=== PATIENT | male | born 1960 | race Caucasian/White ===

== ENCOUNTER → 2020-06-30 | Outpatient (CLI) | payer OTHER ==
--- NOTE | 2020-06-30 15:13 | CT ---
EXAMINATION TYPE: CT abdomen pelvis wo con DATE OF EXAM: 06/30/2020 COMPARISON: CT chest 03/02/2014 HISTORY: 60-year-old male N20.0, renal stones, Right flank pain. CT DLP: 981 mGycm. Automated exposure control for dose reduction was used. TECHNIQUE: Contiguous axial scanning of the abdomen and pelvis without IV contrast. Coronal and sagit vanessa reconstructions performed. FINDINGS: Heart normal size without pericardial effusion. Lung bases clear without pleural effusion. Tiny hiatal hernia. Prominent ingested debris within the stomach. Noncontrast appearance of the liver, gallbladder, left adrenal gland, and pancreas show no gross abno rmal body. Spleen borderline in size at 13.6 cm. Lobulated cystic appearing lesion of the right adrenal gland measuring up to 5.7 x 2.5 x 4.9 cm with discontinuous peripheral calcifications, suspected adrenal pseudocyst related to prior hemorrhage or trauma, presents back in 2013 as well. 1.9 cm low-density lesion anterior midpole of the left kidney versus 1.3 cm in 2014 suggesting a robbin gn cortical cyst. No renal calculi are seen. No hydronephrosis. No suspicious calcification along the course of either ureter. No dilated small bowel, free fluid, or free air. No mesenteric or retroperitoneal lymphadenopathy. Normal appendix. Scattered coiu-pv-ovmiywds stool. No pericolonic inflammatory change. Redundant sigm oid colon. Prostate gland mildly enlarged at 4.8 cm wide. Moderate circumferential bladder wall thickening. A fe w left-sided pelvic phlebolith. No abnormal fluid collection in the pelvis. Some borderline-sized rig ht inguinal chain lymph nodes measuring up to 1.5 cm short axis, refer to coronal image 26 and 32. Bones: Mild to moderate degenerative change at the hips. Degenerative spurring at the right greater t arteaga left SI joints. Advanced degenerative disc disease L-1-L2 and L2-L3. Hypertrophic facet arthropat hy throughout the lumbar spine with grade 1 retrolisthesis at L2-L3 and L3-L4. Multiple levels of sig nificant neuroforaminal narrowing especially on the left within the lumbar spine. IMPRESSION: 1. No nephrolithiasis or hydronephrosis. A 1.9 cm benign cortical cyst within the left kidney. 2. Moderate circumferential bladder wall thickening could reflect chronic bladder wall hypertrophy o r cystitis. Clinically correlate. Prostate gland is mildly enlarged at 4.7 cm wide. 3. A few borderline-enlarged right inguinal lymph nodes measuring up to 1.5 cm short axis. Findings may be reactive/post inflammatory. Correlate with physical exam findings and follow-up clinically. If any enlargement is noted, the area can be reassessed with ultrasound. 4. Chronic pseudocyst of the right adrenal gland measuring up to 5.7 cm, seen back in 2013.
== END | disposition home or self-care (01) ==
LOC: RADCTMAIN 13:40
PROVIDERS: ATTEND Family Medicine
DX: N28.1 Cyst of kidney, acquired (principal); R59.0 Localized enlarged lymph nodes; N20.0 Calculus of kidney
CPT/HCPCS: 74176

== ENCOUNTER → 2021-01-28 | Outpatient (CLI) | payer OTHER ==
--- NOTE | 2021-01-28 15:28 | US ---
EXAMINATION TYPE: US groin bilateral, ultrasound left and ultrasound right groins, respectively DATE OF EXAM: 01/28/2021 COMPARISON: NONE CLINICAL HISTORY: R59.0 angina lymph nodes. Findings: Right groin: There is a 2.5 x 0.7 x 1.4 cm lymph node with a fatty hilum.. Another 1.9 x 1. 1 cm lymph node with a fatty hilum. Another 2.3 x 0.8 x 2.3 cm right groin lymph node with a fatty hi lum is seen. These are most likely reactive lymph nodes. Left groin: 1.5 x 0.8 x 1.4 cm lymph node and 2.1 x 1.1 x 1.9 cm. These lymph nodes have heterogeneou s anay. There is fat within the anay. IMPRESSION: 1. Bilateral prominent groin lymph nodes are seen. These are most likely prominent reactive lymph nod es. Clinical follow-up to resolution and return imaging as clinically indicated. If worrisome, these would be amenable to ultrasound-guided biopsy/aspiration.
== END | disposition home or self-care (01) ==
LOC: RADUSWWP 14:52
PROVIDERS: ATTEND Family Medicine
DX: R59.0 Localized enlarged lymph nodes (principal)

== ENCOUNTER 2021-02-21 12:44 | Day surgery (SDC) | payer OTHER ==
[2021-02-21 13:51] VITALS: RESP 16; TEMP 98.6
--- NOTE | 2021-02-21 14:36 | US ---
ULTRASOUND GUIDED CORE BIOPSY LEFT INGUINAL LYMPH NODE: CLINICAL HISTORY: Request for left inguinal lymph node biopsy FINDINGS: The procedure was explained to the patient. The risks, complications, benefits and alternatives were discussed and any questions were answered. Informed consent was obtained. Patient was placed supin e on the ultrasound table and prepped and draped in the usual sterile fashion. Utilizing a 18-gauge core biopsy needle 2 passes were made into the requested left groin lymph node. Patient was stable throughout the procedure. Pathology is pending. All elements of maximal barrier and sterile technique were utilized. IMPRESSION: 1. Successful ultrasound guided core biopsy left inguinal lymph node.
[2021-02-21 14:37] VITALS: BP 139/86; PULSE 81
== END 2021-02-21 14:20 | disposition home or self-care (01) ==
LOC: RADPROMAIN 12:44
PROVIDERS: ATTEND Family Medicine
DX: R59.0 Localized enlarged lymph nodes (principal)
CPT/HCPCS: 36415; 38505; 76942; 88305

== ENCOUNTER → 2021-05-19 | Outpatient (CLI) | payer OTHER ==
--- NOTE | 2021-05-19 14:03 | XR ---
EXAMINATION TYPE: XR hand complete LT DATE OF EXAM: 05/19/2021 CLINICAL HISTORY: pain TECHNIQUE: Frontal, lateral and oblique images of the left hand are obtained. COMPARISON: None. FINDINGS: Comminuted subungual tuft fracture left third digit. The joint spaces appear within normal limits. Soft tissue swelling noted. IMPRESSION: Comminuted subungual tuft fracture left third digit.
--- NOTE | 2021-05-19 14:03 | XR ---
EXAMINATION TYPE: XR wrist complete LT DATE OF EXAM: 05/19/2021 CLINICAL HISTORY: pain TECHNIQUE: Frontal, lateral and oblique images of the left wrist are obtained. COMPARISON: None. FINDINGS: There is no acute fracture/dislocation evident. The joint spaces appear within normal berg its. The overlying soft tissue appears unremarkable. IMPRESSION: There is no acute fracture or dislocation seen. ICD 10 NO FRACTURE, INITIAL EVALUATION
== END | disposition home or self-care (01) ==
LOC: RADXRMAIN 13:34
PROVIDERS: ATTEND Nurse Practitioner Family
DX: S62.633A Displaced fracture of distal phalanx of left middle finger, initial encounter for closed fracture (principal); M25.532 Pain in left wrist

== ENCOUNTER 2021-07-12 13:54 | Day surgery (SDC) | payer OTHER ==
[2021-07-08 13:26] VITALS: BMI 28.3
[~2021-07-12 13:54] MED LIST: DEXAMETHASONE SOD PHOSPHATE 4 MG/ML 1 ML VIAL IV ONE; HEPARIN SODIUM,PORCINE/PF 5,000 UNIT/0.5 ML SYRINGE SQ PRN; HYDROmorphone 0.5 MG/0.5 ML SYRINGE IVP PRN; LACTATED RINGERS 1,000 ML IV SCH; ONDANSETRON 4 MG/2 ML VIAL IVP ONE; Pre Op ABX Message 1 EACH MISC MISCELLANE ONE
[2021-07-12] MEDS ORDERED: LIDOCAINE 1% INJ 10MG/ML (20 ML MDV) ONE (14:35)
[2021-07-12] MEDS ORDERED: PROPOFOL 10 MG/ML 20 ML VIAL IV ONE (14:35)
[2021-07-12] MEDS ORDERED: MIDAZOLAM 2 MG/2 ML VIAL ONE (14:35)
[2021-07-12] MEDS ORDERED: .fentaNYL (PF) 50 MCG/ML 2 ML AMP ONE (14:35)
[2021-07-12] MEDS ORDERED: BUPIVACAIN-EPI 0.25%-1:200,000 30 ML VIAL SQ ONE ×2 (14:47→15:10)
--- NOTE | 2021-07-12 15:18 | P.OP ---
Date of Procedure: 07/12/21 Preoperative Diagnosis: Inguinal lymphadenopathy Postoperative Diagnosis: Inguinal lymphadenopathy Procedure(s) Performed: Right inguinal lymph node biopsy Anesthesia: JONAH NORIEGA Surgeon: Aundrea Jewell Pathology: other (Right inguinal Lymph node) Condition: stable Disposition: same day Indications for Procedure: 61-year-old male with persistent inguinal lymphadenopathy of unknown etiology. Secondary to this, plan is for lymph node biopsy for further diagnosis and treatment planning. Risks, benefits and alternatives were presented to the patient. He did provide consent prior to attending the operating suite. Operative Findings: Lymphadenopathy of the right inguinal region Description of Procedure: The patient was brought to the operating suite and placed in supine position on the operating table. Sedation was provided by anesthesia patient underwent LMA placement. The patient was then prepped and draped in regular sterile fashion. The palpable lymph node was noted and an incision was made over the palpable site. Dissection was then carried towards the palpable lymph node. The lymph node was clearly visualized and dissection was carried to remove the lymph node from surrounding tissue. The lymph node was then removed and sent to pathology as a fresh specimen for evaluation and lymphoma protocol. Hemostasis was noted to be maintained. The wound was irrigated. The wound was then closed with 30 and 4-0 Vicryl subcuticular suture in layers. Sterile dressing was applied. The patient was awakened in the operating suite and taken to post incision carried in stable condition.
[2021-07-12 15:29] VITALS: TEMP 97.8
[2021-07-12 16:21] VITALS: RESP 18
[2021-07-12 16:31] VITALS: BP 121/71; PULSE 78
== END 2021-07-12 16:57 | disposition home or self-care (01) ==
LOC: OR 13:54
PROVIDERS: ATTEND Surgery
DX: R59.0 Localized enlarged lymph nodes (principal); I10 Essential (primary) hypertension; E78.00 Pure hypercholesterolemia, unspecified; Z20.822 Contact with and (suspected) exposure to COVID-19; Z82.49 Family history of ischemic heart disease and other diseases of the circulatory system; E78.5 Hyperlipidemia, unspecified; I48.91 Unspecified atrial fibrillation; Z79.82 Long term (current) use of aspirin; Z79.899 Other long term (current) drug therapy
CPT/HCPCS: 88307; 87635; 38531; J2250; J1100; J0690; J2405; J2001; J3010; J2704

== ENCOUNTER 2023-09-25 07:34 | Day surgery (SDC) | payer OTHER ==
[2023-09-25] MEDS: LACTATED RINGERS 1,000 ML IV SCH (07:48)
[2023-09-25 08:04] VITALS: RESP 16; TEMP 97.3
[2023-09-25] MEDS ORDERED: PROPOFOL 10 MG/ML 20 ML VIAL IV ONE (08:07)
--- NOTE | 2023-09-25 08:12 | P.GSHP ---
History of Present Illness H&P Date: 09/25/23 Chief Complaint: Colon cancer screening 63-year-old male here for colonoscopy. Last colonoscopy 10 years ago. No bowel complaints. No family history of colon cancer. Past Medical History Past Medical History: Atrial Fibrillation, Hyperlipidemia, Hypertension Additional Past Medical History / Comment(s): rt inguinal lymph node History of Any Multi-Drug Resistant Organisms: None Reported Additional Past Surgical History / Comment(s): VARICOSE VEINS surgery x2, colonoscopy 10 yrs ago Past Anesthesia/Blood Transfusion Reactions: No Reported Reaction Smoking Status: Never smoker - Past Family History Father Family Medical History: No Reported History Medications and Allergies Home Medications Medication Instructions Recorded Confirmed Type Simvastatin [Zocor] 20 mg PO DAILY 02/09/21 09/25/23 History hydroCHLOROthiazide 12.5 mg PO DAILY 02/09/21 09/25/23 History lisinopriL [Prinivil] 20 mg PO DAILY 02/09/21 09/25/23 History Aspirin [Adult Low Dose Aspirin EC] 81 mg PO DAILY 07/08/21 09/25/23 History Allergies Allergy/AdvReac Type Severity Reaction Status Date / Time No Known Allergies Allergy Verified 09/25/23 07:47 Surgical - Exam Vital Signs Temp Pulse Resp BP Pulse Ox 97.3 F L 97 16 146/84 96 09/25/23 07:50 09/25/23 07:50 09/25/23 07:50 09/25/23 07:50 09/25/23 07:50 Physical exam: General: Well-developed, well-nourished HEENT: Normocephalic, sclerae nonicteric Abdomen: Nontender, nondistended Extremities: No edema Neuro: Alert and oriented Assessment and Plan (1) Colon cancer screening Narrative/Plan: Will proceed with colonoscopy at this time. Current Visit: Yes Status: Acute Code(s): Z12.11 - ENCOUNTER FOR SCREENING FOR MALIGNANT NEOPLASM OF COLON SNOMED Code(s): 681032834
--- NOTE | 2023-09-25 08:29 | P.PCN ---
Date of Procedure: 09/25/23 Procedure(s) Performed: PREOPERATIVE DIAGNOSIS: Colon cancer screening POSTOPERATIVE DIAGNOSIS: Ascending colon polyp, diverticulosis PROCEDURE: Colonoscopy with snare polypectomy ANESTHESIA: MAC SURGEON: Franklyn Munoz M.D. SPECIMENS: Ascending colon polyp ENDOSCOPIC PROCEDURE: The patient was placed on the endoscopy table in the left decubitus position. The Olympus colonoscope was inserted into the anus and passed under direct visualization to the base of the cecum. The appendiceal orifice was visualized. From that point the scope was slowly withdrawn inspecting all surfaces carefully. There were no neoplastic inflammatory or polypoid lesions throughout the cecum. In the ascending colon a small polyp was seen and removed using a snare with cautery technique. Remainder of the ascending transverse descending sigmoid and rectum appeared normal. There was minimal left-sided diverticulosis. Digital rectal examination was normal. The patient was taken to the recovery room in stable condition per anesthesia guidelines. RECOMMENDATIONS: Await biopsy results. Anticipate repeat colonoscopy 5 to 7 years.
[2023-09-25 09:12] VITALS: BP 130/85; PULSE 82
== END 2023-09-25 09:19 | disposition home or self-care (01) ==
LOC: ORWHC2ENDO 07:34
PROVIDERS: ATTEND Surgery
DX: Z12.11 Encounter for screening for malignant neoplasm of colon (principal); D12.2 Benign neoplasm of ascending colon; K57.30 Diverticulosis of large intestine without perforation or abscess without bleeding; I10 Essential (primary) hypertension; E78.5 Hyperlipidemia, unspecified; I48.91 Unspecified atrial fibrillation; Z79.82 Long term (current) use of aspirin; Z79.899 Other long term (current) drug therapy
CPT/HCPCS: 88305; 45385; J2704